=== PATIENT | female | born 1990 | race Caucasian/White ===

== ENCOUNTER 2018-12-01 12:41 | Outpatient (CLI) | payer OTHER ==
[2018-12-01] MEDS ORDERED: LIDOCAINE-MPF 1%, 5ML ONE (13:08)
== END 2018-12-01 23:59 | disposition home or self-care (01) ==
LOC: RAD 12:41
PROVIDERS: ATTEND Family Medicine
DX: E04.1 Nontoxic single thyroid nodule (principal); E03.9 Hypothyroidism, unspecified
CPT/HCPCS: 10005; 88172; 88173

== ENCOUNTER 2019-07-12 19:45 | Outpatient (CLI) | payer OTHER ==
[~2019-07-12] VITALS: Ht 175.3 cm; Wt 75.0 kg
[2019-07-12] MEDS ORDERED: DIPHENHYDRAMINE 25 MG CAPSULE ONE (20:04)
[2019-07-12] MEDS ORDERED: ACETAMINOPHEN 500 MG TABLET ONE ×2 (20:04)
[2019-07-12] MEDS ORDERED: ACETAMINOPHEN 500 MG TABLET PO ONE ×2 (20:30)
[2019-07-12] MEDS ORDERED: DIPHENHYDRAMINE 25 MG CAPSULE PO ONE ×2 (20:30)
== END 2019-07-12 20:10 | disposition home or self-care (01) ==
LOC: LDOP 19:45 → EDSTATUS 20:28 → LDOP 22:08
PROVIDERS: ATTEND Obstetrics & Gynecology Maternal & Fetal Medicine
DX: O26.893 Other specified pregnancy related conditions, third trimester (principal); R42 Dizziness and giddiness; Z3A.40 40 weeks gestation of pregnancy
CPT/HCPCS: 59025; 99211; G0463

== ENCOUNTER 2019-07-17 12:17 | Inpatient (IN) | payer OTHER ==
[~2019-07-17] VITALS: Ht 175.3 cm; Wt 74.5 kg
[2019-07-17] MEDS ORDERED: OXYTOCIN 30U/ 0.9% NaCL 500ML 500 ML IV ONE (17:53)
[2019-07-17] MEDS ORDERED: TERBUTALINE 1 MG/ML, 1ML IVPush PRN (18:00)
[2019-07-17] MEDS ORDERED: ONDANSETRON 2MG/ML, 2ML IVPush PRN (18:00)
[2019-07-17] MEDS ORDERED: FENTANYL PF 100 MCG/2ML IVPush PRN (18:00)
[2019-07-17] MEDS ORDERED: TERBUTALINE 1 MG/ML, 1ML SQ PRN (18:00)
[2019-07-17] MEDS ORDERED: FENTANYL PF 100 MCG/2ML IV PRN (18:00)
[2019-07-17] MEDS ORDERED: MISOPROSTOL 25 MCG TABLET VG PRN (18:00)
[2019-07-17 18:24] VITALS: BP 123/76
[2019-07-17 18:25] LABS: BASOPHILS # (AUTO) 0.03 x10^3/uL (0-0.1); BASOPHILS % (AUTO) 0 % (0-1); EOSINOPHILS # (AUTO) 0.01 x10^3/uL (0-0.4); EOSINOPHILS % (AUTO) 0 % (1-7); LYMPHOCYTES # (AUTO) 1.74 x10^3/uL (1-3.4); LYMPHOCYTES % (AUTO) 17 % (22-44); MD NO; MEAN CORPUSCULAR HEMOGLOBIN 28.6 pg (27.0-34.8); MEAN CORPUSCULAR HGB CONC 32.8 g/dL (32.4-35.8); MEAN CORPUSCULAR VOLUME 87.1 fL (80-100); MEAN PLATELET VOLUME 10.9 fL (7.4-10.4); MONOCYTES # (AUTO) 0.78 x10^3/uL (0.2-0.8); MONOCYTES % (AUTO) 8 % (2-9); NEUTROPHILS # (AUTO) 7.66 x10^3/uL (1.8-6.8); NEUTROPHILS % (AUTO) 75 % (42-75); PLATELET COUNT 168 x10^3/uL (130-400); RED BLOOD COUNT 3.99 x10^6/uL (3.82-5.3); RED CELL DISTRIBUTION WIDTH 14.1 % (9.6-15.2)
[2019-07-17] MEDS ORDERED: PLEASE ENTER HEIGHT AND WEIGHT MC SCH (18:30)
[2019-07-17] MEDS: LACTATED RINGERS 1,000 ML IV SCH ×2 (18:36→23:08)
[2019-07-17] MEDS ORDERED: MISOPROSTOL 25 MCG TABLET ONE (18:41)
[2019-07-17] MEDS ORDERED: NEWBORN KIT ONE (19:05)
[2019-07-17] MEDS ORDERED: OXYTOCIN 30U/ 0.9% NaCL 500ML 500 ML ONE (19:05)
[2019-07-17] MEDS ORDERED: TERBUTALINE 1 MG/ML, 1ML ONE (19:15)
[2019-07-17] MEDS ORDERED: PREN1TAB60 PO (21:22)
[2019-07-17] MEDS ORDERED: METH5TAB6 PO (21:23)
[2019-07-18] MEDS ORDERED: FENTANYL/BUPIV./NS/PF 250 ML EPIDCONT SCH (02:42)
[2019-07-18] MEDS ORDERED: LACTATED RINGERS 1,000 ML IVBOLUS PRN (03:00)
[2019-07-18] MEDS ORDERED: EPHEDRINE 50 MG/ML, 1ML IVPush PRN (03:00)
[2019-07-18] MEDS ORDERED: FENTANYL PF 100 MCG/2ML ONE (05:23)
[2019-07-18] MEDS ORDERED: MISOPROSTOL 200 MCG TABLET PR PRN (06:00)
[2019-07-18] MEDS ORDERED: ONDANSETRON 2MG/ML, 2ML IV PRN (06:00)
[2019-07-18] MEDS ORDERED: SIMETHICONE 80 MG CHEW TAB PO PRN (06:00)
[2019-07-18] MEDS ORDERED: OXYcodone/APAP 5/325MG TABLET PO PRN ×2 (06:00)
[2019-07-18] MEDS ORDERED: METHYLERGONOVINE 0.2 MG/ML IM PRN (06:00)
[2019-07-18] MEDS ORDERED: IBUPROFEN 600 MG TABLET ONE (06:37)
[2019-07-18] MEDS ORDERED: IBUPROFEN 800 MG TABLET ONE (06:38)
[2019-07-18] MEDS: IBUPROFEN 800 MG TABLET PO PRN ×2 (06:40→16:54)
[2019-07-18 08:00] VITALS: BP 101/66
[2019-07-18 12:00] VITALS: BP 118/72
[2019-07-18 13:53] LABS: BASOPHILS % (AUTO) 0 % (0-1); EOSINOPHILS % (AUTO) 0 % (1-7); LYMPHOCYTES # (AUTO) 0.92 x10^3/uL (1-3.4); LYMPHOCYTES % (AUTO) 6 % (22-44); MD NO; MEAN CORPUSCULAR HEMOGLOBIN 28.6 pg (27.0-34.8); MEAN CORPUSCULAR HGB CONC 32.9 g/dL (32.4-35.8); MEAN CORPUSCULAR VOLUME 86.9 fL (80-100); MEAN PLATELET VOLUME 10.4 fL (7.4-10.4); MONOCYTES # (AUTO) 0.64 x10^3/uL (0.2-0.8); MONOCYTES % (AUTO) 4 % (2-9); NEUTROPHILS # (AUTO) 13.02 x10^3/uL (1.8-6.8); NEUTROPHILS % (AUTO) 89 % (42-75); PLATELET COUNT 163 x10^3/uL (130-400); RED BLOOD COUNT 3.57 x10^6/uL (3.82-5.3); RED CELL DISTRIBUTION WIDTH 14.2 % (9.6-15.2)
[2019-07-18 17:59] VITALS: BP 128/88
[2019-07-18] MEDS: LACTATED RINGERS 1,000 ML IV SCH (18:42)
[2019-07-18 20:00] VITALS: BP 110/73
[2019-07-18] MEDS: OXYTOCIN 30U/ 0.9% NaCL 500ML 500 ML IV SCH (22:25)
[2019-07-18] MEDS: PRENATAL VIT/IRON/FA 1 EACH TABLET PO SCH (22:25)
[2019-07-19 01:05] VITALS: BP 108/70
[2019-07-19] MEDS: OXYTOCIN 30U/ 0.9% NaCL 500ML 500 ML IV SCH ×3 (01:39→21:39)
[2019-07-19] MEDS: LACTATED RINGERS 1,000 ML IV SCH ×3 (02:42→18:42)
[2019-07-19 04:00] VITALS: BP 107/68
[2019-07-19 07:10] VITALS: BP 122/74
[2019-07-19] MEDS: PRENATAL VIT/IRON/FA 1 EACH TABLET PO SCH (07:58)
[2019-07-19] MEDS: DOCUSATE 100 MG CAPSULE PO PRN ×2 (07:58→20:42)
[2019-07-19] MEDS: IBUPROFEN 800 MG TABLET PO PRN ×2 (07:58→16:03)
[2019-07-19 20:15] VITALS: BP 105/66
[2019-07-20] MEDS: LACTATED RINGERS 1,000 ML IV SCH (02:42)
[2019-07-20] MEDS: IBUPROFEN 800 MG TABLET PO PRN ×2 (03:52→12:32)
[2019-07-20 07:31] VITALS: BP 114/76
[2019-07-20] MEDS: PRENATAL VIT/IRON/FA 1 EACH TABLET PO SCH (08:52)
[2019-07-20] MEDS: DOCUSATE 100 MG CAPSULE PO PRN (08:52)
[2019-07-20] MEDS ORDERED: IBUP-1222 PO (10:35)
== END 2019-07-20 14:11 | disposition home or self-care (01) | DRG 807 ==
LOC: LDIP 17:05 → 2NW 07-18 07:51
PROVIDERS: ADMIT Obstetrics & Gynecology Maternal & Fetal Medicine; ATTEND Obstetrics & Gynecology Maternal & Fetal Medicine
PROC: 10E0XZZ Delivery of Products of Conception, External Approach (ICD-10-PCS; principal; 2019-07-18)
PROC: 0KQM0ZZ Repair Perineum Muscle, Open Approach (ICD-10-PCS; 2019-07-18)
DX: O48.0 Post-term pregnancy (principal); Z37.0 Single live birth; O99.284 Endocrine, nutritional and metabolic diseases complicating childbirth; E05.90 Thyrotoxicosis, unspecified without thyrotoxic crisis or storm; O69.1XX0 Labor and delivery complicated by cord around neck, with compression, not applicable or unspecified; Z3A.40 40 weeks gestation of pregnancy; O70.1 Second degree perineal laceration during delivery
CPT/HCPCS: 36415; 85025; 86592; 86850; 86900; G0378; J3010; J7120